=== PATIENT | female | born 1965 ===

== ENCOUNTER 2022-05-29 05:49 | Day surgery (SDC) | payer OTHER | END 2022-05-29 09:35 | disposition home or self-care (01) | LOC: AMB-ENDOS 05:49 | PROVIDERS: ATTEND Surgery | DX: K29.70 Gastritis, unspecified, without bleeding (principal); B96.81 Helicobacter pylori [H. pylori] as the cause of diseases classified elsewhere; K44.9 Diaphragmatic hernia without obstruction or gangrene; E66.09 Other obesity due to excess calories; I10 Essential (primary) hypertension; K90.49 Malabsorption due to intolerance, not elsewhere classified; Z20.822 Contact with and (suspected) exposure to COVID-19 ==